=== PATIENT | female | born 1970 | race Caucasian/White ===

== ENCOUNTER 2021-10-16 03:08 | Emergency (ER) | payer SELFPAY ==
--- NOTE | 2021-10-16 03:25 | NUR ---
PATIENT WAS CALLED TO BE TRIAGED BUT WAS NOT PRESENT IN THE WAITING ROOM OR OUTSIDE OF ER.
--- NOTE | 2021-10-16 03:40 | NUR ---
PATIENT WAS CALLED TO BE TRIAGED BUT WAS NOT PRESENT IN THE WAITING ROOM OR OUTSIDE OF ER.
--- NOTE | 2021-10-16 04:00 | NUR ---
PATIENT WAS CALLED TO BE TRIAGED BUT WAS NOT PRESENT. PATIENT WAS NOT TRIAGED OR SEEN BY [facility].
== END 2021-10-16 04:00 | disposition left against medical advice (07) ==
LOC: ER 03:10
DX: Z53.21 Procedure and treatment not carried out due to patient leaving prior to being seen by health care provider (principal)